=== PATIENT | male | born 1945 | race Caucasian/White ===

== ENCOUNTER 2017-03-07 04:52 | Inpatient (IN) ==
[2017-02-28 18:16] LABS: Basophils # (Auto) 0 K/mcL (0.0-0.3); Basophils % (Auto) 0.4 % (0.0-2.0); Eosinophils # (Auto) 0.4 K/mcL (0.0-0.7); Eosinophils % (Auto) 4.5 % (0.0-7.0); Granulocytes % (Auto) 59.8 % (38.0-78.0); Lymphocytes % (Auto) 24.8 % (15.5-49.0); Mean Cell Volume 91.6 fL (80.0-100.0); Mean Corpuscular Hemoglobin 31.1 pg (26.0-34.0); Monocytes # (Auto) 0.8 K/mcL (0.1-0.9); Monocytes % (Auto) 10.5 % (1.0-12.0); Platelet Count 223 K/mcL (140-440); RBC 5.04 M/mcL (4.50-5.90); Red Cell Distribution Width 13.3 % (11.5-14.5)
[2017-02-28 18:38] LABS: Appearance,Urine CLEAR; Bilirubin,Urine NEG (NEG); Color,Urine YELLOW; Glucose,Urine (UA) NEGATIVE (NEG); Leukocyte Esterase,Urine NEG /uL (NEG); Nitrate,Urine NEG (NEG); Protein,Urine NEG (NEG); Specific Gravity,Urine 1.018 (1.000-1.035); Urine Blood NEG mg/dL (<0.03); Urobilinogen,Urine NEG (NEG)
[2017-02-28 18:46] LABS: Blood Urea Nitrogen 15 mg/dl (8-23)
[2017-03-07] MEDS ORDERED: ceFAZolin 1 GM VIAL IV SCH (05:00)
[2017-03-07] MEDS ORDERED: CELECOXIB 200 MG CAPSULE PO SCH (05:00)
[2017-03-07] MEDS ORDERED: PREGABALIN 75 MG CAPSULE PO SCH (05:00)
[2017-03-07] MEDS: oxyCODONE 10 MG TAB.ER.12H PO SCH ×2 (05:51→05:59)
[2017-03-07] MEDS ORDERED: GLYCOPYRROLATE 0.2 MG/ML VIAL IV ONE (07:45)
[2017-03-07] MEDS ORDERED: DEXAMETHASONE 10 MG/ML VIAL IV ONE (07:45)
[2017-03-07] MEDS ORDERED: PROPOFOL 200 MG/20 ML VIAL IV ONE (07:45)
[2017-03-07] MEDS ORDERED: TRANEXAMIC ACID 1,000 MG/10 ML VIAL IV ONE (07:45)
[2017-03-07] MEDS ORDERED: ONDANSETRON 4 MG/2 ML VIAL IV ONE (07:45)
[2017-03-07] MEDS ORDERED: ePHEDrine 50 MG/ML AMPUL IV ONE (07:45)
[2017-03-07] MEDS ORDERED: MIDAZOLAM 5 MG/5 ML VIAL IV ONE (07:45)
[2017-03-07] MEDS ORDERED: LIDOCAINE HCL/PF 100 MG/5 ML SYRINGE IV ONE (07:45)
[2017-03-07] MEDS ORDERED: HETASTARCH 6% 500 ML BAG IV ONE (07:45)
[2017-03-07] MEDS ORDERED: GENTAMICIN SULFATE 800 MG/20 ML VIAL IR ONE (08:27)
[2017-03-07] MEDS ORDERED: KETOROLAC 15 MG/ML VIAL IV PRN (09:48)
[2017-03-07] MEDS ORDERED: TRANEXAMIC ACID 1,000 MG/10 ML VIAL IV SCH (09:48)
[2017-03-07] MEDS ORDERED: HYDROmorphone 2 MG/ML SYRINGE IV PRN ×2 (09:48→09:50)
[2017-03-07] MEDS ORDERED: FLEETS ADULT ENEMA PR PRN (09:48)
[2017-03-07] MEDS ORDERED: POLYETHYLENE GLYCOL 3350 17 GM PACKET PO PRN (09:48)
[2017-03-07] MEDS ORDERED: ONDANSETRON 4 MG/2 ML VIAL IV PRN ×2 (09:48→09:50)
[2017-03-07] MEDS ORDERED: MAGNESIUM HYDROXIDE 30 ML ORAL.SUSP PO PRN (09:48)
[2017-03-07] MEDS ORDERED: BENZOCAINE/MENTHOL 1 LOZENGE PO PRN ×2 (09:48→09:50)
[2017-03-07] MEDS ORDERED: ONDANSETRON ODT 4 MG TABLET SL PRN (09:48)
[2017-03-07] MEDS ORDERED: BISACODYL 10 MG SUPP.RECT PR PRN (09:48)
--- NOTE | 2017-03-07 09:48 | Brief Operative Note ---
Date of procedure: 03/07/17 Pre-op diagnosis: right hip oa Post-op diagnosis: same Procedure: right total hip arthroplasty Grafts/Implants: Yes Anesthesia: spinal Complications: none Surgeon: Marc Jessica Automobile Inspector: Sangeeta Villarreal Estimated blood loss (cc): 800 Specimens Removed/Pathology: none sent Condition: stable Disposition: PACU
[2017-03-07] MEDS ORDERED: MEPERIDINE 25 MG/ML SYRINGE IV PRN (09:50)
[2017-03-07] MEDS ORDERED: METHOCARBAMOL 1,000 MG/10 ML VIAL IV PRN (09:50)
[2017-03-07] MEDS ORDERED: fentaNYL 100 MCG/2 ML VIAL IV PRN (09:50)
[2017-03-07] MEDS ORDERED: FLUMAZENIL 0.1 MG/ML ML IV PRN (09:50)
[2017-03-07] MEDS ORDERED: PROMETHAZINE 25 MG/ML VIAL IV PRN (09:50)
[2017-03-07] MEDS ORDERED: LACTATED RINGERS 250 ML IV PRN (09:50)
[2017-03-07] MEDS ORDERED: IPRATROPIUM/ALBUTEROL 3 ML AMPUL.NEB NEB PRN (09:50)
[2017-03-07] MEDS ORDERED: NALOXONE HCL 0.4 MG/ML VIAL IV PRN (09:50)
[2017-03-07] MEDS ORDERED: ACETAMINOPHEN 1,000 MG/100 ML BOTTLE IV ONE (09:50)
[2017-03-07] MEDS ORDERED: diphenhydrAMINE 50 MG/ML VIAL IV PRN (09:50)
[2017-03-07] MEDS ORDERED: LACTATED RINGERS 1,000 ML IV SCH (10:00)
[2017-03-07] MEDS: 0.9 % SODIUM CHLORIDE 1,000 ML IV SCH ×2 (10:45→17:48)
--- NOTE | 2017-03-07 11:14 | Operative Note ---
DATE OF OPERATION: 03/07/2017 PREOPERATIVE DIAGNOSIS: Degenerative joint disease, right hip. POSTOPERATIVE DIGNOSIS: Degenerative joint disease, right hip. PROCEDURE: Right total hip arthroplasty. SURGEON: Eva Jessica M.D. DOG BARBER SURGEON: Sangeeta Villarreal PA-C. ANESTHESIA: Spinal with LMA assist. ESTIMATED BLOOD LOSS: 800 mL. COMPLICATIONS: None noted. SPECIMENS REMOVED: None. DRAINS: None. IMPLANTS: DePuy Drain Gription acetabular shell 58 mm; DePuy Bristol Hole Eliminator PS; DePuy Drain Altrx polyethylene acetabular liner, lipped 38 x 58 mm; Tri-Lock BPS femoral stem with Gription size 7 standard; DePuy Biolox delta ceramic femoral head +12, 36 mm diameter. INDICATIONS: The patient has had a longstanding history of worsening pain in the hip that has failed conservative treatment. Radiographs have confirmed advanced degenerative joint disease. After a long discussion about treatment options, the patient elected to proceed with a hip arthroplasty. The risks and benefits were discussed with the patient in detail including, but not limited to, the risks of anesthesia, problems with the heart or lungs related to anesthesia, infection, compromise or injury to the nerves and blood vessels, deep venous thrombosis, pulmonary embolism, pneumonia, continued pain after surgery, worsening pain or symptoms after surgery, swelling, loss of motion, instability, leg length discrepancy, and need for repeat surgery. DESCRIPTION OF PROCEDURE: The patient was seen in pre-anesthesia waiting room where all questions were answered and the correct side and site were identified and marked. The patient was then brought to the operating room and administered the anesthetic and given pre-operative antibiotics. A time-out was then called. The patient was placed in the lateral decubitus position with all prominences well padded using the [place] frame and the extremity was prepped and draped in the usual sterile fashion. Anesthesia gave the patient 1 gm of tranexamic acid via an intravenous route. A standard posterior approach was made. We dissected through the skin and subcutaneous tissue to the deep fascia. The deep fascia was split in line with the incision and a Charnley retractor was placed. We exposed, tagged, and incised the short external rotators and piriformis tendon and retracted them posteriorly to help protect the sciatic nerve which was palpated throughout the case. We then performed a T-capsulotomy and tagged the capsule edges. Prior to dislocating the hip, we set a length and offset gauge from a Steinmann pin in the iliac wing to a trina on the greater trochanter. The hip was then dislocated and a femoral neck osteotomy was performed to the pre-surgical templated level off the lesser trochanter. The head was removed and sized. We next turned our attention to the acetabulum. Retractors were placed for optimal visualization. A complete labral excision was performed. The capsule was preserved for later closure. We began reaming using anatomic landmarks with the DePuy Drain acetabular system. We medialized the cup and reamed up to provide good fill and coverage of the trial. When the trial was stable and appropriately positioned with approximately 20 degrees of anteversion and 45 degrees of abduction, we impacted the DePuy Drain cup and placed a cancellous screw in the posterior-superior quadrant. Osteophytes were removed from around the shell. We placed the trial liner and turned our attention to the femur. We placed retractors for visualization, internally rotated the femur, and established intramedullary access. We broached using the DePuy Tri-Lock stem to a stable platform medial, lateral, and rotationally with the appropriate version. We then performed a calcar reaming off the broach. Trials were then placed and optimized for leg length and stability. We used the leg length and offset guide to confirm our trials. Best stability, length, and offset characteristics were obtained with these sizes. We removed all trials and impacted the polyethylene acetabular liner in a standard fashion after a thorough irrigation. We then impacted the femoral stem to its broached location and placed the head. Final reduction was performed. Again, good stability, leg length, and offset characteristics were noted. We irrigated with three liters of antibiotic saline. We closed the capsule with #2 FiberWire. We placed a deep drain and closed the fascia with a combination of looped #0 Maxon and #0 Vicryl. We closed the subcutaneous tissue and skin in layers out to janice in the skin. A sterile pressure dressing and abduction wedge was applied. All needle and sponge counts were correct. The patient was transferred to the recovery room in stable condition. Aure Job ID: [id number] Doc ID: [id number] Eva Jessica MD
--- NOTE | 2017-03-07 11:48 | XRay Report ---
CLINICAL INFORMATION: Postop right hip prostheses COMPARISON: None. FINDINGS: Right total hip prostheses is anatomically aligned. No osseous abnormality. Soft tissue swelling seen as expected. IMPRESSION: Negative Interpreted and Authenticated by: Marc Garg 03/07/17
[2017-03-07] MEDS: HYDROcodone/APAP 10/325MG TABLET PO PRN ×4 (14:03→23:27)
[2017-03-07] MEDS: 0.9 % SODIUM CHLORIDE 10 ML SYRINGE IV SCH ×2 (15:36→21:54)
[2017-03-07] MEDS: ceFAZolin 1 GM VIAL IV SCH ×2 (15:46→23:27)
[2017-03-07] MEDS: ASPIRIN 325 MG ENTERIC COATED TABLET PO SCH (20:23)
[2017-03-07] MEDS: DOCUSATE SODIUM 100 MG CAPSULE PO SCH (20:23)
[2017-03-07] MEDS: GEMFIBROZIL 600 MG TABLET PO SCH (20:23)
[2017-03-07] MEDS ORDERED: SIMVASTATIN 20 MG TABLET PO SCH (21:00)
[2017-03-07] MEDS ORDERED: SENNOSIDES 1 TABLET PO SCH (21:00)
[2017-03-08] MEDS: 0.9 % SODIUM CHLORIDE 1,000 ML IV SCH ×2 (02:26→09:13)
[2017-03-08] MEDS: METHOCARBAMOL 750 MG TABLET PO PRN ×2 (02:40→08:30)
[2017-03-08] MEDS: HYDROcodone/APAP 10/325MG TABLET PO PRN (03:40)
[2017-03-08] MEDS: 0.9 % SODIUM CHLORIDE 10 ML SYRINGE IV SCH (05:54)
--- NOTE | 2017-03-08 07:19 | Orthopedic Progress Note ---
Subjective Patient information: Note initiated : 03/08/17 at 7:18 am Service Date, if different from initiated Date: [] Patient: Cheko Rizzo 71 y/o M admitted on 03/07/17 for Right Total Hip Arthroplasty Posterior. Chief Complaint: [] Interval history: doing well. pain under control Objective Vital signs: Vital Signs Temp Pulse Resp BP BP Pulse Ox 03/08/17 07:13 97.5 F 16 146/68 95 03/08/17 04:00 98.3 F 76 16 146/67 95 03/08/17 00:00 98.3 F 76 16 130/70 92 03/07/17 20:00 98.5 F 78 16 128/65 93 03/07/17 17:55 97.0 F 108/60 96 03/07/17 15:30 98.2 F 79 18 139/71 94 03/07/17 14:00 77 18 138/73 95 03/07/17 13:00 68 16 139/72 93 03/07/17 12:30 97.5 F 65 16 133/68 94 03/07/17 12:00 67 16 146/66 95 03/07/17 11:45 66 15 126/68 95 03/07/17 11:30 67 14 125/73 92 03/07/17 11:15 97.1 F 73 14 124/67 92 03/07/17 11:05 14 92 03/07/17 10:54 97.0 F 72 13 104/56 96 03/07/17 10:47 75 12 97/53 96 03/07/17 10:35 79 14 105/51 98 03/07/17 10:27 70 10 L 97/43 100 03/07/17 10:22 98.3 F 73 10 L 99/39 97 Intake and Output 03/07/17 03/08/17 03/08/17 21:59 05:59 13:59 Intake Total 3000 / 3000 2080 / 2080 Output Total 400 / 400 226 / 226 Balance 2600 / 2600 1854 / 1854 Intake: IV 1000 / 1000 1000 / 1000 Sodium Chloride 0.9% 1,000 ml @ 1000 / 1000 1000 / 1000 125 mls/hr IV .Q8H [facility] Rx#: [id number] Oral 1999 1080 / 1080 Output: Void Amount 400 / 400 225 / 225 # of times incontinent of urine Other: Meal Nourishment/Supplement Percent of Meal Consumed 100% Feeding Ability Independent # Voids 1 Weight 258 lb 8 oz Intake & Output: Intake & Output 03/07/17 03/08/17 03/08/17 21:59 05:59 13:59 Intake Total 3000 / 3000 2080 / 2080 Output Total 400 / 400 226 / 226 Balance 2600 / 2600 1854 / 1854 Weight 258 lb 8 oz Intake: IV 1000 / 1000 1000 / 1000 Sodium Chloride 0.9% 1,000 ml @ 1000 / 1000 1000 / 1000 125 mls/hr IV .Q8H [facility] Rx#: [id number] Oral 1999 1080 / 1080 Output: Void Amount 400 / 400 225 / 225 # of times incontinent of urine Other: Meal Nourishment/Supplement Percent of Meal Consumed 100% Feeding Ability Independent # Voids 1 Incision: Yes healing Incision clean and dry: Yes Dressing: Yes clean, Yes dry, Yes intact Weight bearing status: full Neurological exam IM: Yes alert, Yes normal gait, Yes oriented X3, Yes motor sensory intact, Yes neurovascular intact Extremities exam IM: No calf tenderness, Yes normal inspection, Yes Foot pink and warm, Yes neurovascular intact - Labs CBC & BMP: 03/08/17 05:30 02/28/17 17:07 Labs: Orthopedic Labs 02/28/17 17:08 PT 13.0 INR 1.0 03/08/17 02/28/17 05:30 17:08 Hgb 9.9 L 15.7 Hct 28.5 L 46.2 Assessment and Plan (1) Hip osteoarthritis pod 1 s/p bhupendra wbat pain control dvt prophylaxis dc planning. home if passes pt Status: Acute
[2017-03-08] MEDS: ASPIRIN 325 MG ENTERIC COATED TABLET PO SCH (08:22)
[2017-03-08] MEDS: DOCUSATE SODIUM 100 MG CAPSULE PO SCH (08:22)
[2017-03-08] MEDS: GEMFIBROZIL 600 MG TABLET PO SCH (08:23)
[2017-03-08] MEDS ORDERED: amLODIPine 5 MG TABLET PO SCH (09:00)
[2017-03-08] MEDS ORDERED: LOSARTAN 50 MG TABLET PO SCH (09:00)
[2017-03-08] MEDS ORDERED: HYDROCHLOROTHIAZIDE 25 MG TABLET PO SCH (09:00)
[2017-03-08] MEDS ORDERED: PNEUMOCOCCAL 23-VAL P-SAC VAC 0.5 ML VIAL IM ONE (10:00)
== END 2017-03-08 09:50 | disposition home or self-care (01) | DRG 470 ==
LOC: MEDSUR 04:52
PROVIDERS: ADMIT Orthopaedic Surgery Sports Medicine; ATTEND Orthopaedic Surgery Sports Medicine